=== PATIENT | female | born 1960 | race Caucasian/White ===

== ENCOUNTER → 2016-11-28 | Outpatient (CLI) | payer BC, OTHER ==
--- NOTE | 2016-11-28 08:43 | MA ---
Screening Digital Mammogram Clinical Indications: Routine screening. Technique: Standard cephalocaudal and mediolateral oblique projections are obtained. An additional c c views are performed of each breast. This examination was processed by the [facility] [employer] computer aided detec tion system. Comparison: September 2015, July 2012 and July 2010 Breast density: C; The breast tissue is heterogeneously dense, which could obscure detection of small masses. Findings: CAD was reviewed. A 6mm nodule is present in the central, slightly upper slightly inner lef t breast approximately 6 cm from the nipple. This is in the same location as an asymmetry identified in 2014 on the oblique lateral view only, and looks more prominent than on a diagnostic mammogram per formed in September 2015. Impression: Small nodule central left breast. BI-RADS 0. Additional imaging with ultrasound recommended. If ultrasound does not identify a correspo nding lesion then proceed to diagnostic mammography. Recommendation: Ultrasound left breast to differentiate cyst from solid.. [facility] will send a result letter to the patient. Negative mammography should not preclude additional workup of a clinically suspicious finding. The patient's information is entered into a reminder system with a target due date for her next mammo gram.
== END ==
LOC: CIMAGING 08:10
DX: Z12.31 Encounter for screening mammogram for malignant neoplasm of breast (principal)
CPT/HCPCS: G0202